=== PATIENT | female | born 1960 | race American Indian/Alaskan Native ===

== ENCOUNTER 2021-08-12 09:23 | Outpatient (CLI) | payer OTHER | END 2021-08-12 09:24 | disposition home or self-care (01) | LOC: PF 09:23 | PROVIDERS: ATTEND Internal Medicine | DX: J44.9 Chronic obstructive pulmonary disease, unspecified (principal); M79.669 Pain in unspecified lower leg; F32.A Depression, unspecified | CPT/HCPCS: 94010 ==